=== PATIENT | female | born 1965 | race Caucasian/White ===

== ENCOUNTER 2018-07-13 02:22 | Emergency (ER) | payer OTHER ==
[~2018-07-13] VITALS: Wt 75.0 kg
[2018-07-13 02:31] VITALS: BP 110/72; PULSE 94; RESP 19
[2018-07-13] MEDS ORDERED: LORAZEPAM 2 MG INJ IM ONE (03:00)
--- NOTE | 2018-07-13 03:05 | ERD ---
ER Documentation Chief Complaint Chief Complaint bib ra from taxi cab, patient is etoh, HPI This is a 52-year-old female brought in by rescue from [facility]. Patient admits to drinking alcohol. Denies fevers chills nausea vomiting. No evidence of trauma upon arrival. Patient is combative and has her dog with her. ROS All systems reviewed and are negative except as per history of present illness. PMhx/Soc Medical and Surgical Hx: pt denies Medical Hx, pt denies Surgical Hx Hx Alcohol Use: Yes (etoh abuse ) Hx Substance Use: No Hx Tobacco Use: No Smoking Status: Never smoker Physical Exam Vitals Vital Signs Date Temp Pulse Resp B/P (MAP) Pulse Ox O2 O2 Flow FiO2 Time Delivery Rate 07/13/18 98.7 90 19 107/70 100 02:31 (82) 07/13/18 98.7 94 19 110/72 100 Room Air 02:31 (85) Physical Exam Const: No acute distress Head: Atraumatic Eyes: Normal Conjunctiva ENT: Normal External Ears, Nose and Mouth. Neck: Full range of motion. No meningismus. Resp: Clear to auscultation bilaterally Cardio: Regular rate and rhythm, no murmurs Abd: Soft, non tender, non distended. Normal bowel sounds Skin: No petechiae or rashes Back: No midline or flank tenderness Ext: No cyanosis, or edema Neur: Awake and alert Psych: Normal Mood and Affect Results 24 hrs Current Medications Medications Dose Sig/Giana Start Time Status Last (Trade) Ordered Route PRN Stop Time Admin Dose Reason Admin Lorazepam 2 mg ONCE ONCE 07/13/18 UNV (Ativan) IM 03:00 07/13/18 03:01 Procedures/MDM Medical decision makin-year-old female here with alcohol intoxication. Discharged with family custody. Advised to stop drinking. Departure Diagnosis: Primary Impression: Alcoholic intoxication Complication of substance-induced condition: uncomplicated Qualified Codes: F10.920 - Alcohol use, unspecified with intoxication, uncomplicated Condition: Stable Patient Instructions: Alcohol Intoxication RICKEY CASSIDY Jul 13, 2018 03:05
== END 2018-07-13 04:10 | disposition home or self-care (01) ==
LOC: E/R 02:22
DX: F10.920 Alcohol use, unspecified with intoxication, uncomplicated (principal)
CPT/HCPCS: 99282